=== PATIENT | male | born 1960 | race African-American/Black ===

== ENCOUNTER 2020-02-06 09:40 | Inpatient (IN) | payer OTHER, SELFPAY ==
[~2020-02-06] VITALS: Ht 177.8 cm; Wt 98.4 kg
[2020-02-06 10:45] VITALS: Ht 177.8 cm; Wt 98.4 kg
[2020-02-06 11:31] LABS: BASOPHIL % 0.3 % (0-2)
[2020-02-06 11:40] LABS: CALCIUM 8.8 mg/dL (8.5-10.1); CARBON DIOXIDE 21.4 mmol/L (21-32); CHLORIDE SERUM 103 mmol/L (98-107); CREATININE SERUM 1.8 mg/dL (0.7-1.3); GFR1 41 mL/min; GLUCOSE SERUM 247 mg/dL (74-106); SODIUM SERUM 141 mmol/L (136-145)
[2020-02-06 11:45] LABS: ALBUMIN 3.5 g/dL (3.4-5.0); ALKALINE PHOSPHATASE 92 U/L (46-116); ALT/SGPT 30 U/L (16-63); AST/SGOT 23 U/L (15-37); C REACTIVE PROTEIN 4.5 mg/dL (<=0.9); LACTIC DEHYDROGENASE (LDH) 389 U/L (100-190); TOTAL PROTEIN, SERUM 8.1 g/dL (6.4-8.2)
[2020-02-06 12:04] LABS: UA SPECIFIC GRAVITY >=1.030 (1.005-1.035); microscopic required? YES; urine erythrocyte TRACE (NEGATIVE)
[2020-02-06 12:09] LABS: T3 TOTAL 0.65 ng/mL
[2020-02-06 12:13] LABS: AMPHETAMINE QUAL UR NONE DETECTED (See below)
[2020-02-06 12:14] LABS: FREE T4 1.12 ng/dL (0.76-1.46); FREE THYROXINE INDEX 2.6 ug/dL (1.4-4.5); PLATELET COUNT 79 x10^3mcL (130-400); RED CELL DISTRIBUTION WIDTH 16.9 % (11.5-14.5); T4(THYROXINE) 7.1 ug/dL (4.7-13.3)
[2020-02-06 13:49] VITALS: BP 120/92
[2020-02-06] MEDS ORDERED: TYLENOL ARTHRI650 MG PO (15:04)
[2020-02-06] MEDS ORDERED: XOPENEX3 ML INH (15:04)
[2020-02-06] MEDS ORDERED: ATORVASTATIN CA40 M1 PO (15:05)
[2020-02-06] MEDS ORDERED: ASPIRIN ADULT L81 M3 PO (15:05)
[2020-02-06] MEDS ORDERED: LOSARTAN POTAS100 M1 PO (15:06)
[2020-02-06] MEDS ORDERED: MICROZIDE12.5 MG PO (15:06)
[2020-02-06] MEDS ORDERED: GLUCOPHAGE500 MG PO (15:06)
[2020-02-06 22:13] VITALS: BP 129/96
[2020-02-07] VITALS (7 sets, daily range): BP systolic 109–131; BP diastolic 78–98
[2020-02-07 05:28] LABS: BASOPHIL % 0.5 % (0-2); PLATELET COUNT 136 x10^3mcL (130-400); RED CELL DISTRIBUTION WIDTH 17.1 % (11.5-14.5)
[2020-02-07 05:38] LABS: CALCIUM 8.5 mg/dL (8.5-10.1); CARBON DIOXIDE 26.3 mmol/L (21-32); CREATININE SERUM 1.6 mg/dL (0.7-1.3); POTASSIUM SERUM 4.3 mmol/L (3.5-5.1)
[2020-02-08 03:29] VITALS: BP 113/87
[2020-02-08 06:00] LABS: CALCIUM 8.7 mg/dL (8.5-10.1); CARBON DIOXIDE 23.5 mmol/L (21-32); CREATININE SERUM 1.6 mg/dL (0.7-1.3); POTASSIUM SERUM 4.5 mmol/L (3.5-5.1)
[2020-02-08 06:10] LABS: BASOPHIL % 0.7 % (0-2); PLATELET COUNT 163 x10^3mcL (130-400)
[2020-02-08 06:11] LABS: RED CELL DISTRIBUTION WIDTH 17.1 % (11.5-14.5)
[2020-02-08 09:00] VITALS: BP 126/92
[2020-02-08 12:40] VITALS: BP 142/90
[2020-02-08 16:45] VITALS: BP 137/82
[2020-02-08 20:44] VITALS: BP 137/88
[2020-02-09 05:31] VITALS: BP 122/93
[2020-02-09 07:19] LABS: CALCIUM 9.1 mg/dL (8.5-10.1); CARBON DIOXIDE 24.3 mmol/L (21-32); CREATININE SERUM 1.4 mg/dL (0.7-1.3); POTASSIUM SERUM 4.1 mmol/L (3.5-5.1)
[2020-02-09 07:55] LABS: BASOPHIL % 0.6 % (0-2); PLATELET COUNT 152 x10^3mcL (130-400)
[2020-02-09 07:56] LABS: RED CELL DISTRIBUTION WIDTH 16.9 % (11.5-14.5)
[2020-02-09 08:28] VITALS: BP 144/89
[2020-02-09 11:29] VITALS: BP 144/89
[2020-02-09 12:24] VITALS: BP 144/94
[2020-02-09 17:13] VITALS: BP 146/96
[2020-02-09 20:02] VITALS: BP 133/91
[2020-02-10 04:06] LABS: CARDIOLIPIN AB IGA <9 APL U/mL (0-11)
[2020-02-10 06:15] VITALS: BP 145/94
[2020-02-10 08:02] LABS: BASOPHIL % 0.5 % (0-2); PLATELET COUNT 166 x10^3mcL (130-400)
[2020-02-10 08:16] LABS: CALCIUM 8.7 mg/dL (8.5-10.1); CARBON DIOXIDE 24.2 mmol/L (21-32); CREATININE SERUM 1.3 mg/dL (0.7-1.3); POTASSIUM SERUM 4.3 mmol/L (3.5-5.1)
[2020-02-10 08:52] LABS: RED CELL DISTRIBUTION WIDTH 16.9 % (11.5-14.5)
[2020-02-10 09:44] VITALS: BP 133/94
[2020-02-10 12:32] VITALS: BP 137/91
[2020-02-10 17:25] VITALS: BP 136/79
[2020-02-10 20:30] VITALS: BP 145/96
[2020-02-11 05:40] VITALS: BP 128/89
[2020-02-11 08:00] VITALS: BP 146/89
== END 2020-02-11 20:40 | disposition other institution (70) | DRG 871 ==
LOC: ED 09:40 → DU 13:24 → IC 13:24 → IW 13:24 → ED 13:24 → IC 21:11 → IW 22:02 → DU 02-08 19:33
PROVIDERS: Specialist; ADMIT Internal Medicine; ATTEND Internal Medicine
DX: A41.9 Sepsis, unspecified organism (principal); I26.99 Other pulmonary embolism without acute cor pulmonale; J18.9 Pneumonia, unspecified organism; J96.01 Acute respiratory failure with hypoxia; I82.402 Acute embolism and thrombosis of unspecified deep veins of left lower extremity; N17.9 Acute kidney failure, unspecified; I47.2 Ventricular tachycardia; D68.59 Other primary thrombophilia; R65.20 Severe sepsis without septic shock; J45.909 Unspecified asthma, uncomplicated; E78.5 Hyperlipidemia, unspecified; R55 Syncope and collapse; N18.9 Chronic kidney disease, unspecified; D69.6 Thrombocytopenia, unspecified; E11.22 Type 2 diabetes mellitus with diabetic chronic kidney disease; I12.9 Hypertensive chronic kidney disease with stage 1 through stage 4 chronic kidney disease, or unspecified chronic kidney disease; Z20.828 Contact with and (suspected) exposure to other viral communicable diseases; Z87.891 Personal history of nicotine dependence; Z79.899 Other long term (current) drug therapy; Z79.01 Long term (current) use of anticoagulants; E11.65 Type 2 diabetes mellitus with hyperglycemia
CPT/HCPCS: 36600; 81241; 82962; 83880; 84439; 85378; 86147; 87804; A4628; G0378; J0282; J0456; J0696; J1644; J2270; J2550; Q0092; Q9967; U0003-CS